=== PATIENT | female | born 1945 | race Caucasian/White ===

== ENCOUNTER 2023-12-05 13:19 | Emergency (ER) | payer OTHER ==
[~2023-12-05] VITALS: Ht 162.6 cm; Wt 68.0 kg
[2023-12-05 14:01] LABS: HEMATOCRIT 35.9 % (36-48); MEAN CORPUSCULAR HEMOGLOBIN 31.1 pg (27.0-33.0); MEAN CORPUSCULAR HGB CONC 33.7 g/dL (32.0-36.0); MEAN CORPUSCULAR VOLUME 92.3 fL (79-99); RED BLOOD CELL COUNT(AUTO) 3.89 MIL/uL (4.00-5.50); RED CELL DISTRIBUTION WIDTH 13.3 % (11.0-15.5); WHITE BLOOD COUNT (AUTO) 9.5 K/uL (4.8-10.8)
[2023-12-05] MEDS: leveTIRACEtam 500 MG/5 ML SD VIAL IV ONE ×2 (14:10)
[2023-12-05 14:12] LABS: POTASSIUM 3.4 mmol/L (3.5-5.1)
[2023-12-05 15:08] VITALS: BP 136/64; PULSE 80; RESP 14; TEMP 98.6; O2SAT 98
[2023-12-05 15:13] LABS: APPEARANCE,URINE CLEAR (CLEAR); BILIRUBIN,URINE NEGATIVE (NEGATIVE); COLOR,URINE LIGHT-YELLOW (YELLOW); GLUCOSE, URINE (UA) NEGATIVE (NEGATIVE); KETONES,URINE NEGATIVE (NEGATIVE); LEUKOCYTE ESTERASE ,URINE NEGATIVE Leu/uL (NEGATIVE); NITRATE,URINE NEGATIVE (NEGATIVE); OCCULT BLOOD,URINE NEGATIVE (NEGATIVE); PROTEIN,URINE NEGATIVE (NEGATIVE); UROBILINOGEN,URINE 0.2 mg/dL (0.2-1.0)
[2023-12-05 15:14] LABS: ADD UA MICROSCOPIC NO
== END 2023-12-05 15:05 | disposition left against medical advice (07) ==
LOC: EDH 13:19
DX: R20.2 Paresthesia of skin (principal); M79.604 Pain in right leg
CPT/HCPCS: 99284; 96365; 80048; 85027; 81003; 36415; J1953